=== PATIENT | female | born 1935 | race Caucasian/White ===

== ENCOUNTER 2019-06-02 20:45 | Inpatient (IN) | payer MEDICARE, SELFPAY ==
[2019-06-02 20:46] VITALS: BP 102/65; PULSE 98; RESP 20; TEMP 36.6; O2SAT 95; BMI 31.0
--- NOTE | 2019-06-02 20:55 | EKG12_ITS ---
Test Reason : SNYCOPE Blood Pressure : / mmHG Vent. Rate : 118 BPM Atrial Rate : 110 BPM P-R Int : 000 ms QRS Dur : 082 ms QT Int : 340 ms P-R-T Axes : 000 -10 135 degrees QTc Int : 476 ms Atrial fibrillation with rapid ventricular response Inferior infarct , age undetermined ST & T wave abnormality, consider lateral ischemia Abnormal ECG Confirmed by SEAN BAZAN, RONIT ([id number]), scientific publications editor CLARA JOHNSON ([id number]) on 06/05/2019 1:03:03 PM Referred By: Christophe Morrow Confirmed By:RONIT ESTRADA MD
--- NOTE | 2019-06-02 20:56 | ED.DCSUM_ITS ---
History of Present Illness Chief Complaint: Syncope Informant: Significant Other, Trimmer Sawyer Onset: Today Context: Sudden Onset Timing: Intermittent Quality: Passed out Location: Local restaurant Current Severity: Mild Maximum Severity: Severe Worsened by: Unknown Relieved by: Nothing Associated Symptoms: Hypotension, pallor, diaphoresis nausea Narrative: Patient is an elderly woman with history of hypertension and hypercholesterolemia who presents after syncopal episode. She was eating with her . She felt warm and nauseous prior to passing out. There was no noted seizure activity. There is no incontinence of urine or stool. She denies palpitations or irregular heartbeat. She denies history of atrial fibrillation. Her only present complaint is feeling tired. She denies black or maroon stool. She denies chest pain or shortness of breath. Prior similar symptoms: No Recent Illness/Hospitalization: No - Past Medical History (1) History of hypertension Status: Acute (2) History of hypercholesterolemia Status: Acute Past Medical History - Allergies and Home Meds Allergies/Adverse Reactions: Allergies polyethylene glycol [From Golytely] Allergy (Verified 06/02/19 21:22) Vomiting polyethylene glycol 3350 [From Golytely] Allergy (Verified 06/02/19 21:22) Vomiting potassium chloride [From Golytely] Allergy (Verified 06/02/19 21:22) Vomiting sodium [From Golytely] Allergy (Verified 06/02/19 21:22) Vomiting sodium bicarbonate [From Golytely] Allergy (Verified 06/02/19 21:22) Vomiting sodium chloride [From Golytely] Allergy (Verified 06/02/19 21:22) Vomiting sodium sulfate [From Golytely] Allergy (Verified 06/02/19 21:22) Vomiting Prior records reviewed: No Surgical History: noncontributory Lives: Spouse/ Significant Other Alcohol: None Drugs: None - Family History Maternal Family History: Reports: Hypertension, - - Her mother had clogged artery/narrowed artery close to her heart Paternal Family History: Reports: Cancer - Her father had lung cancer. However patient stated that her father was a smoker., - - Multiple sclerosis Review of Systems General: Denies: Chills, Fever, Sweats Eyes: Denies: Visual changes - bilaterally, Diplopia ENT: Denies: Rhinorrhea, Sore throat Cardiovascular: Denies: Chest pain, Palpitations Respiratory: Denies: Dyspnea, Cough, Dyspnea on exertion Gastrointestinal: Reports: Nausea. Denies: Abdominal pain, Vomiting, Diarrhea, Melena, Hematochezia Genitourinary: Denies: Dysuria, Hematuria, Frequency Musculoskeletal: Denies: Myalgias, Arthralgias, Neck pain, Back pain, Extremity Pain Skin: Denies: Rash, Wounds Neurological: Reports: Weakness. Denies: Headache, Numbness Hematologic: Denies: Easy bruising, Easy bleeding Allergy: Denies: Uticaria Physical Exam Vital Signs/Narrative: Vital Signs Temp Pulse Resp BP Pulse Ox 06/02/19 20:46 97.8 F 98 20 H 102/65 95 Inital Vital Signs reviewed: Yes General: Well nourished, Well developed, No Acute Distress Head: Normocephalic, Atraumatic Eyes: Perrl, EOMI. Negative for: Pale conjunctiva, Scleral icterus ENT: Moist mucous membranes, No rhinorrhea, TM's clear Neck: Supple, Nontender, No lymphadenopathy, No JVD Cardiovascular: Normal S2, Irregular, Tachycardia Respiratory: No distress, CTA bilaterally Abdomen: Soft, Nontender, Nondistended, Normal bowel sounds Back: Nontender, Normal Inspection. Negative for: CVA tenderness Extremities: Nontender, No edema Skin: Normal color, No rash, No Trauma. Negative for: Cyanosis, Diaphoresis, Jaundice Neurological: Alert, Oriented x3, Cranial nerves II-XII grossly intact, Normal Strength, Normal Sensation, Normal DTR Psychological: Normal affect, Normal Mood Diagnostic/Tx/Re-eval Laboratory Results 06/02/19 06/02/19 21:15 21:15 WBC 3.8 L RBC 3.62 L Hgb 11.9 L Hct 35.1 L MCV 97.0 MCH 32.9 H MCHC 33.9 RDW Std Deviation 45.4 H RDW Coeff of Rojelio 12.8 Plt Count 168 MPV 9.5 Sodium 136 Potassium 3.3 L Chloride 106 Carbon Dioxide 26.0 Anion Gap 4 L BUN 20 H Creatinine 0.86 Estim Creat Clear Calc 42.44 Est GFR (MDRD) Af Amer 81 Est GFR (MDRD) Non-Af 67 BUN/Creatinine Ratio 23.2 H Glucose 77 Calcium 8.6 Troponin I 0.173 H - EKG Initial EKG Interpretation: Atrial Fibrillation - Ventricular rate is 118. Decreased anterior force. QRS duration 82 ms. QT duration 340 ms. Computer is reading consider lateral ischemia. There is biphasic T wave in 1 and slightly inverted T wave and aVL. - Medical Decision Making With history of nausea, pallor, diaphoresis and hypotension syncope most likely secondary to vasovagal. She states 1 cardiology is told her that she had a problem with her heart. states that when she sought a second opinion the second associate professor of violin was puzzled why she would be told that there is a concern when her work-up was unremarkable. Patient's blood pressure presently 102. This is lower than normal. Suspect this is a prolonged vasovagal episode with hypotension. Because of her age question of heart problems EKG and appropriate blood work was obtained. Differential for new onset atrial fibrillation thyroid disease, IL, history of chronic hypertension and pulmonary embolus. Troponin was obtained to assess for myocardial ischemia. She does not have symptoms of heat or cold intolerance or hypothyroidism. Furthermore, she has no symptoms to suggest pulmonary embolus. She was given metoprolol since troponin came back indeterminant for rate control as well as 4 baby aspirin. Hospitalist was paged for further inpatient testing. - Critical Care Time Critical care time (excluding procedures): 30-74 minutes, Discussing w/Patient &/or Family/Outdoor Illuminating Engineer, Discussing w/Consultants, Arranging Admission or Transfer ED Disposition - Plan for ED Patient: Disposition: Acute Care Hospital [facility] Diagnosis: New onset atrial fibrillation, Elevated troponin I level, History of hypertension, Syncope and collapse
[2019-06-02 21:23] LABS: Hematocrit 35.1 % (37-47); Hemoglobin 11.9 g/dL (12.0-15.0); Mean Corp Hgb Conc 33.9 g/dL (32-36); Mean Corpuscular Hgb 32.9 pg (27.0-32.0); Mean Platelet Vol. 9.5 fl (6.2-12.0); Platelet Count 168 K/mm3 (150-450); RBC Distribution Width CV 12.8 % (11.6-14.6); RBC Distribution Width SD 45.4 fl (35.1-43.9); Red Blood Count 3.62 M/mm3 (4.2-5.4); White Blood Count 3.8 K/mm3 (4.4-11.0)
[2019-06-02 21:42] LABS: Anion Gap 4 (5-15); BUN 20 mg/dL (7-18); BUN/Creat Ratio 23.2 RATIO (10-20); Calcium,Total 8.6 mg/dL (8.5-10.1); Chloride 106 mmol/L (98-107); Creatinine, Serum 0.86 mg/dL (0.55-1.02); EST Glomerular Filtration Rate 67 mL/min (>60); Est Glom Filt Rate - Afr Amer 81 mL/min (>60); Estimated Creatinine Clearance 42.44 ml/min; Glucose 77 mg/dL (74-106); Potassium 3.3 mmol/L (3.5-5.1); Sodium Level 136 mmol/L (136-145)
--- NOTE | 2019-06-02 21:55 | HP.PCM_ITS ---
Problem List (1) Pre-syncope Status: Acute (2) New onset atrial fibrillation Status: Acute (3) HTN (hypertension) Status: Chronic (4) Syncope and collapse Status: Inactive History of Present Illness Date of Admission: 06/02/19 Chief Complaint: pre-syncope The patient is a 83 year old F with a significant history of trigeminal n euralgia; hypertension; hyperlipidemia and GERD who presented to the emergency department with a presyncopal episode that started a few hours before her presentation. Patient went to a restaurant to eat with her . After she had eaten food and drank a little alcohol she felt lightheaded she was lethargic and she vomited about 3 times. She felt like passing out but she did not actually pass out. Patient and re-affirmed that the alcohol patient drank was not excessive. Also she looked pale. Paramedics found that her systolic pressure was in the 60s. At the emergency department she was found to be in A. fib with rapid ventricular response of around 118. She reported that in the last 5 to 6 years occasionally she has skipped heartbeats. She denies any heart disease except that she reported in the past while being evaluated for surgery cardiology told her that she had a blockage in her heart. However a repeat examination by the network security engineer showed that her heart was okay. Past Medical History Past Medical History (Chronic Problems): Chronic Problems HTN (hypertension) (Chronic) Allergies polyethylene glycol [From Golytely] Allergy (Verified 06/02/19 21:22) Vomiting polyethylene glycol 3350 [From Golytely] Allergy (Verified 06/02/19 21:22) Vomiting potassium chloride [From Golytely] Allergy (Verified 06/02/19 21:22) Vomiting sodium [From Golytely] Allergy (Verified 06/02/19 21:22) Vomiting sodium bicarbonate [From Golytely] Allergy (Verified 06/02/19 21:22) Vomiting sodium chloride [From Golytely] Allergy (Verified 06/02/19 21:22) Vomiting sodium sulfate [From Golytely] Allergy (Verified 06/02/19 21:22) Vomiting Home Medications: Ambulatory Orders Medication Instructions Recorded Atorvastatin Calcium 10 mg PO DAILY 06/02/19 Carbamazepine 200 mg PO TID 06/02/19 Gabapentin [Neurontin] 300 mg PO TID 06/02/19 Hydrochlorothiazide 12.5 mg PO DAILY 06/02/19 Lisinopril [Zestril] 10 mg PO DAILY 06/02/19 Magnesium Oxide [Magnesium] 400 mg PO DAILY 06/02/19 Omeprazole 40 mg PO DAILY 06/02/19 Aspirin [Aspirin, Baby] 81 mg PO DAILY@0800 06/03/19 Surgical History: appendectomy, total hip arthroplasty, - - Bilateral knee surgery; tubal ligation Lives: Spouse/ Significant Other Smoking Status: Never smoker Alcohol: None Drugs: None - *Family History Maternal History Items: Hypertension, - - Her mother had clogged artery/narrowed artery close to her heart Paternal History Items: Cancer - Her father had lung cancer. However patient stated that her father was a smoker., - - Multiple sclerosis Review of Systems Constitutional: Denies: Chills, Fever, Weight Change HEENT: Denies: Head Aches, Sinus Congestion, Sinus Drainage Cardiovascular: Reports: Light Headedness. Denies: Chest Pain, Palpitations Respiratory: Denies: Cough, Shortness of breath at rest, Sputum production Gastrointestinal: Reports: Vomiting. Denies: Abdominal Pain Genitourinary: Denies: Dysuria Musculoskeletal: Denies: Joint Pain, Joint Tenderness Skin: Denies: Rash, Wounds Neurological: Denies: Numbness, Tingling, Focal weakness Psychiatric: Denies: Anxiety, Depression, Homicidal Ideations, Suicidal Ideations Hematologic/ Lymphatic: Denies: Easy Bruising, Easy Bleeding VTE Information - Inpt Only VTE Present on Admission: No VTE Mechan Device Prophylaxis: None VTE Pharm Prophylaxis ordered?: No Reason prophylaxis not ordered:: Treatment Not Indicated - Started on therapeutic dose of Lovenox for A. fib Patient Problems: Active and Suspected Problems History of hypertension (Acute) New onset atrial fibrillation (Acute) Elevated troponin I level (Acute) Pre-syncope (Acute) - Physical Exam General: Alert, Oriented x3, Cooperative HEENT: Atraumatic, PERRLA, EOMI, Normocephalic Neck: Supple, No JVD, Negative Carotid Bruits Lungs: Clear to auscultation, Normal air movement Cardiovascular: No murmurs, Irregular Rate Abdomen: Bowel Sounds Present, Soft, Non Tender Extremities: No edema, Capillary Refill Less than 3 Seconds Skin: No rashes, No breakdown Musculoskeletal: No Tenderness to Palpation of Joints or Extremities Neurological: Cranial nerves II-XII grossly intact Psych/Mental Status: Normal Affect, Appropriate Vital Signs Temp Pulse Resp BP Pulse Ox 97.8 F 98 20 H 102/65 95 06/02/19 20:46 06/02/19 20:46 06/02/19 20:46 06/02/19 20:46 06/02/19 20:46 Oxygen Delivery Method Room Air Weight: 79.4 kg Body Mass Index (BMI) 31.0 Laboratory Tests Past 24 Hrs 06/02/19 06/02/19 21:15 21:15 WBC 3.8 L RBC 3.62 L Hgb 11.9 L Hct 35.1 L MCV 97.0 MCH 32.9 H MCHC 33.9 RDW Std Deviation 45.4 H RDW Coeff of Rojelio 12.8 Plt Count 168 MPV 9.5 Sodium 136 Potassium 3.3 L Chloride 106 Carbon Dioxide 26.0 Anion Gap 4 L BUN 20 H Creatinine 0.86 Estim Creat Clear Calc 42.44 Est GFR (MDRD) Af Amer 81 Est GFR (MDRD) Non-Af 67 BUN/Creatinine Ratio 23.2 H Glucose 77 Calcium 8.6 Troponin I 0.173 H Assessment/Plan All Active Problems History of hypertension (Acute) History of hypercholesterolemia (Acute) New onset atrial fibrillation (Acute) Elevated troponin I level (Acute) Pre-syncope (Acute) The patient is a 83 year old F with a significant history of trigeminal neuralgia; hypertension; hyperlipidemia and GERD who presented to the emergency department with a presyncopal episode and found to have A. fib with RVR; and with troponin in the indeterminate range.. A. fib with RVR EKG independently reviewed showed A. fib with ventricular rates of 118 Admitted to PCU on telemetry Serial cardiac enzymes Obtain echo [id number] Score = at least 4 (age more or equal 77; female gender; hypertension) Lovenox 1 mg per kilogram subcutaneous every 12 hours Patient was given metoprolol 25 mg p.o. x1 at the emergency department. We will continue patient on metoprolol 12.5 mg p.o. twice daily. Of note patient is on lisinopril and hydrochlorothiazide. She reported that in the past she has had low blood pressures. Will decrease lisinopril from 10mg to 5 mg daily. Consider further adjustment to her blood pressure regimen. Her potassium was low at 3.3; replaced Check magnesium and TSH Consult [facility] Recheck the labs in the a.m. including a lipid panel. Elevated troponin Etiology includes CAD; A. fib or other. Trend troponin Received aspirin 325 mg at the emergency department. Continue aspirin 81 mg daily. Continue home Lipitor. Cardiology consult as above Presyncopal episode This could be related to her A. fib; vasovagal episode; CAD or other. Check orthostatic vitals. Echocardiogram as above A. fib management as above. Hypertension In regards to her age her blood pressure on presentation was stable. Continue hydrochlorothiazide. Lisinopril changed from 10 mg to 5 mg because of starting metoprolol. Trend blood pressure and adjust blood pressure medication. Of note patient reports previous episodes of hypotension that has now resolved. And as stated above patient was noted to have systolic blood pressure in the 60s when she had a presyncopal episode that brought her to the emergency department.. Trigeminal neuralgia Carbamazepine and Neurontin continued DVT prophylaxis Not indicated since patient has been started on therapeutic dose of Lovenox for A. fib. Code Visit Inpatient E&M: 25438 Init Hosp L3
[2019-06-02] MEDS: Aspirin 81 MG TAB.CHEW 324 MG PO (22:22)
[2019-06-02 22:23] VITALS: BP 117/89; PULSE 122; RESP 23; O2SAT 95
[2019-06-02] MEDS: Metoprolol Tartrate 25 MG Tablet PO (22:23)
--- NOTE | 2019-06-02 23:09 | ECHOD_ITS ---
Reason For Study: A. fib Procedure This was a 2D Doppler, Color Flow transthoracic echocardiogram. Exam performed portable in patient room. Left Ventricle Mild concentric left ventricular hypertrophy. The estimated ejection fraction is 65 %. Right Ventricle Normal right ventricle. Atria The left atrium is moderately enlarged. Mitral Valve Mild (1+) mitral valve insufficiency. Tricuspid Valve Mild tricuspid valve insufficiency. Pulmonary artery systolic pressure is 35 mmHg. Aortic Valve Normal aortic valve. Pulmonic Valve Mild (1+) pulmonic valve insufficiency. Great Vessels Suspicious linear structure in IVC. Can not rule out thrombus. Cosider CT angio to evaluate further. Pericardium/Pleural No pericardial effusion. MMode/2D Measurements & Calculations LVIDd: 2.0 cm IVSd: 1.3 cm Ao root diam: 3.2 cm LVIDs: 1.3 cm LVPWd: 1.1 cm RVDd: 3.0 cm FS: 34.9 % LAV(MOD-bp): 73.8 ml LA A4 area: 20.8 cm2 LA dimension(2D): 3.2 cm LAV(MOD-bp) Indexed: 40.4 ml/m2 LAV(MOD-sp2): 86.8 ml LAV(MOD-sp4): 58.8 ml RA A4 area: 17.5 cm2 Doppler Measurements & Calculations MV E max mirlande: 115.8 cm/sec Ao V2 max: 144.2 cm/sec LV V1 max: 126.8 cm/sec Ao max P.4 mmHg LV V1 max P.5 mmHg PA V2 max: 80.9 cm/sec TR max mirlande: 262.3 cm/sec TR max P.6 mmHg Interpretation Summary Mild concentric left ventricular hypertrophy. The estimated ejection fraction is 65 %. Suspicious linear structure in IVC. Can not rule out thrombus. Cosider CT angio to evaluate further Ordering Physician: Christophe Morrow Referring Physician: Kevin Flores Performed By: Sandra Granados RDCS
[2019-06-02 23:10] VITALS: BMI 30.2
[2019-06-02 23:11] VITALS: BP 131/80; PULSE 111; RESP 18; TEMP 36.4; O2SAT 96
[2019-06-02 23:12] VITALS: BP 139/80
[2019-06-02 23:16] VITALS: PULSE 106
[2019-06-03] VITALS (15 sets, daily range): BP systolic 101–139; BP diastolic 59–100; PULSE 67–146; RESP 13–16; TEMP 36.5–36.9; O2SAT 96–98; BMI 30.2
[2019-06-03] MEDS: Enoxaparin 80 MG/0.8 ML Syringe SC ×3 (00:51→22:30)
[2019-06-03 00:57] LABS: Magnesium 2.1 mg/dL (1.6-2.6)
[2019-06-03 01:06] LABS: Bedside Glucose 108 mg/dL (70-110)
[2019-06-03] MEDS: Gabapentin 300 MG Capsule PO ×4 (01:31→19:40)
[2019-06-03 04:25] LABS: Anion Gap 4 (5-15); BUN 17 mg/dL (7-18); BUN/Creat Ratio 22.1 RATIO (10-20); Calcium,Total 8.4 mg/dL (8.5-10.1); Chloride 109 mmol/L (98-107); Cholesterol 187 mg/dL (200); Creatinine, Serum 0.77 mg/dL (0.55-1.02); EST Glomerular Filtration Rate 77 mL/min (>60); Est Glom Filt Rate - Afr Amer 93 mL/min (>60); Glucose 95 mg/dL (74-106); High Density Lipoprotein 82 mg/dL; Potassium 4.5 mmol/L (3.5-5.1); Sodium Level 141 mmol/L (136-145); Thyroid Stim Hormone (TSH) 1.17 uIU/mL (0.358-3.74); Triglycerides 67 mg/dL; Very Low Density Lipoprotein 13 mg/dL (5-40)
[2019-06-03] MEDS: CLARIFY ORDER 1 EACH NOTE (06:54)
[2019-06-03] MEDS: 0.9% NaCl Peripheral Flush Adult/Peds IV (07:12)
[2019-06-03] MEDS: Aspirin 81 MG TAB.CHEW PO (08:27)
[2019-06-03] MEDS: hydroCHLOROthiazide 12.5mg 12.5 MG PO (10:15)
[2019-06-03] MEDS: Lisinopril 5 MG Tablet PO (10:15)
[2019-06-03] MEDS: Metoprolol Tartrate 25 MG Tablet 12.5 MG PO (10:15)
[2019-06-03] MEDS: Magnesium Oxide 400 MG Tablet PO (10:16)
[2019-06-03] MEDS: Pantoprazole Sodium 40 MG Tablet PO (10:16)
[2019-06-03] MEDS: carBAMazepine 200 MG Tablet PO ×3 (10:16→22:29)
--- NOTE | 2019-06-03 11:39 | CASEMGMT ---
MAREN NEWSOME assessment: Face to Face with patient for initial transition planning/care coordination assessment. MAREN NEWSOME introduced self and role at [facility], pt voices understanding and consents to assessment at this time. Pt is sitting up in bed in no distress at this time. Pt is A/Ox4 at this time and answers all questions appropriately at this time. Care providers, pharmacy, and demographics verified at this time. PCP: [facility] Specialists: Pt states has neurologist in [place]. Preferred Pharmacy: [facility] Insurance: [facility] Prescription Benefit: Access ClosureR Living Will/HPOA: Pt states does not have LW/HPOA and declines info at this time. LNOK: Yuan Kelly, Living Arrangements: Pt states lives with in 1 story home with 4 steps in and states no concerns at home at this time. Pt states is independent with ADL's. Transportation: Pt states drives self and states no transportation concerns at this time. DME/HHC: Pt states has a cane and walker at home and states no need for any further DME at this time. Pt states has had HHC in the past and states has been to [facility] in [place] in the past. Pt states no concerns with going home at time of discharge. Pt states is retired. Pt states does not smoke or drink ETOH. Pt states no further concerns/needs at this time. CM to follow for any further discharge planning/needs. Advised pt to ask for CM if any further questions/concerns/needs arise, voices understanding. Pt Goal: Home Plan[place] MAREN NEWSOME
--- NOTE | 2019-06-03 12:41 | CT_ITS ---
HISTORY: Abdominal pain with concern for IVC thrombosis COMPARISON: None. TECHNIQUE: Helical CT axial images from the lung bases to the pubic symphysis with 100 ml of Isovue 370 intravenous contrast. Multiplanar reconstruction. 3D image processing was also performed. A radiation dose optimization technique was used for this scan. # of images incl. paperwork: [id number] FINDINGS: VASCULAR: Note that the delayed phase imaging did not adequately opacify the IVC. No abnormal dilatation of the IVC or bilateral common iliac veins. Renal veins, splenic vein, portal vein and SMV are patent. Normal caliber abdominal aorta without aneurysm or dissection. Mild infrarenal abdominal aortic tortuosity and minimal ASVD. Main visceral branches including the celiac, superior mesenteric, and inferior mesenteric arteries and bilateral renal arteries are patent. LUNG BASES: No basilar consolidation or effusions. LIVER: Normal in size and attenuation. A left hepatic lobe 5 mm probable cyst. Benign-appearing hypodense lesion posterior segment right hepatic lobe near the inferior margin measuring 1.8 x 0.7 cm. No suspicious hepatic lesions. HEPATOBILIARY: Normal-appearing gallbladder. No intra- or extrahepatic ductal dilatation. SPLEEN: Normal size. PANCREAS: Normal size and contour. No focal mass. ADRENAL GLANDS: Normal size. No adrenal masses. KIDNEYS: No obstructing calculi or hydronephrosis bilaterally. No nephrolithiasis. Moderate size multiple left parapelvic renal cysts. Several small bilateral parenchymal renal cysts. BOWEL AND MESENTERY: No small or large bowel dilatation. No visualized colonic diverticulosis. No abnormal mesenteric lymphadenopathy. No free fluid or pneumoperitoneum. RETROPERITONEUM: No abnormal retroperitoneal lymphadenopathy. ABDOMINAL WALL: The abdominal wall is intact. BONES: No suspicious osseous lytic or blastic lesions seen. Moderate levoconvex scoliosis of lumbar spine. Severe thoracolumbar spine degenerative changes. CT/CTA Abdomen W/WO Contrast IMPRESSION: 1. Late-phase imaging was not obtained and hence opacification of the IVC was not adequately achieved. There is no abnormal dilatation of the IVC nor bilateral common iliac veins. Visceral veins are patent as described. 2. Negative CTA of the abdomen. 3. No acute intra-abdominal disease. 4. Moderate left parapelvic renal cysts. No obstructive uropathy. 5. A couple of benign-appearing hepatic lesions as described. Individualized dose optimization techniques were used for this CT. at 1416 Reported and signed by: Gamaliel Noriega MD Electronically Signed: Gamaliel Noriega MD at 14:15 EDT Tel , Service support ,
[2019-06-03 12:48] LABS: D-Dimer Quantitative (DVT/PE) 1.02 FEU/ug/m (0.27-0.49)
--- NOTE | 2019-06-03 13:29 | CON.PCM_ITS ---
Problem List (1) New onset atrial fibrillation Status: Acute Reason for Consult Date of Consultation: 06/03/19 History of Present Illness: The patient is a 83 year old F past medical history significant for trigeminal neuralgia, hypertension and dyslipidemia. She was at a restaurant yesterday with it and she felt lightheaded and thought she was going to pass out. That feeling lasted for a few minutes. She was brought to the emergency room. In the emergency room, she was noted to have atrial fibrillation with rapid ventricular response. Patient has been asymptomatic since during further stay in the hospital. Patient denies any previous history of syncope or presyncope. Denies any history of CVA or TIA. Denies any history of chest pain or shortness of breath either related rest or with exertion. According to her, she has had some palp itations many years ago. No orthopnea proximal nocturnal dyspnea. [] Past Medical History Allergies/Adverse Reactions: Allergies polyethylene glycol [From [facility]] Allergy (Verified 06/02/19 21:22) Vomiting polyethylene glycol 3350 [From [facility]] Allergy (Verified 06/02/19 21:22) Vomiting potassium chloride [From [facility]] Allergy (Verified 06/02/19 21:22) Vomiting sodium [From [facility]] Allergy (Verified 06/02/19 21:22) Vomiting sodium bicarbonate [From [facility]] Allergy (Verified 06/02/19 21:22) Vomiting sodium chloride [From [facility]] Allergy (Verified 06/02/19 21:22) Vomiting sodium sulfate [From [facility]] Allergy (Verified 06/02/19 21:22) Vomiting Home Medications: Ambulatory Orders Medication Instructions Recorded Atorvastatin Calcium 10 mg PO DAILY 06/02/19 Carbamazepine 200 mg PO TID 06/02/19 Gabapentin [Neurontin] 300 mg PO TID 06/02/19 Hydrochlorothiazide 12.5 mg PO DAILY 06/02/19 Lisinopril [Zestril] 10 mg PO DAILY 06/02/19 Magnesium Oxide [Magnesium] 400 mg PO DAILY 06/02/19 Omeprazole 40 mg PO DAILY 06/02/19 Aspirin [Aspirin, Baby] 81 mg PO DAILY@0800 06/03/19 Past Medical History (Chronic Problems): Chronic Problems HTN (hypertension) (Chronic) Surgical History: appendectomy, total hip arthroplasty, - - Bilateral knee surgery; tubal ligation - *Family History Maternal History Items: Hypertension, - - Her mother had clogged artery/narrowed artery close to her heart Paternal History Items: Cancer - Her father had lung cancer. However patient stated that her father was a smoker., - - Multiple sclerosis Lives: Spouse/ Significant Other Smoking Status: Never smoker Tobacco Use: Non-smoker Alcohol: None Drugs: None Review of Systems - Review of Systems General: Denies: Fever, Chills HEENT: Reports: Blurred Vision. Denies: Head Aches Cardiovascular: Reports: Near Syncope. Denies: Chest Discomfort, Chest Discomfort at Rest, Chest Discomfort with Exertion, Shortness of Breath, Shortness of Breath at Rest, Shortness of Breath with Exertion, Orthopnea, PND, Peripheral Edema, Palpitations, Syncope Respiratory: Denies: Hemoptysis Gastrointestinal: Denies: Abdominal Discomfort, Jaundice Neurological: Denies: History of TIA, History of CVA Hematologic/ Lymphatic: Denies: Anemia, Easy Brusing, Easy Bleeding Subjectve: Pleasant lady. No apparent distress. Objective: Vital Signs Temp Pulse Resp BP Pulse Ox 98.0 F 79 16 113/71 96 06/03/19 10:07 06/03/19 10:59 06/03/19 10:07 06/03/19 10:15 06/03/19 10:07 Oxygen Delivery Method Room Air Weight: 77.4 kg Body Mass Index (BMI) 30.2 Orthostatic Vital Signs Start: 06/03/19 03:20 Freq: q24h Status: Active Protocol: Activity Type Activity Date Activity User E-Sign Co-Sign Detail Recorded Client Recorded Date Recorded By Document 06/03/19 07:03 PAL [id number] 06/03/19 07:09 PAL 06/03/19 07:03 Orthostatic Vitals Standing -Blood Pressure (90/60-120/80) 118/77 -Extremity Use Left Arm -Pulse Rate (60-100) 115 H Sitting -Blood Pressure (90/60-120/80) 105/68 -Extremity Use Left Arm -Pulse Rate (60-100) 115 H Lying -Blood Pressure (90/60-120/80) 117/66 -Extremity Use Left Arm -Pulse Rate (60-100) 94 Intake and Output for Last 24 Hours 06/01/19 06/02/19 06/03/19 23:59 23:59 23:59 Intake Total 370 / 370 Output Total 300 / 300 Balance 70 / 70 General: Healthy Appearing, Awake, Alert, Oriented x 3, Cooperative, - - Lying flat in the bed HEENT: Atraumatic, Normocephalic Neck: Supple, No JVD Lungs: Clear to auscultation Cardiovascular: Irregular Rhythm, Normal S1, Normal S2, No Murmurs, No Rubs Vascular: No Carotid Bruits Abdomen: Bowel Sounds Present, Soft Extremities: No edema Neurological: No Focal Motor or Sensory Deficit Psych/Mental Status: Appropriate 06/02/19 21:15: WBC 3.8 L, RBC 3.62 L, Hgb 11.9 L, Hct 35.1 L, MCV 97.0, MCH 32.9 H, MCHC 33.9, Plt Count 168, MPV 9.5 06/02/19 21:15: Sodium 136, Potassium 3.3 L, Chloride 106, Carbon Dioxide 26.0, Anion Gap 4 L, BUN 20 H, Creatinine 0.86, Est GFR (MDRD) Af Amer 81, Est GFR (MDRD) Non-Af 67, BUN/Creatinine Ratio 23.2 H, Glucose 77, Calcium 8.6, Troponin I 0.173 H 06/03/19 00:02: Troponin I 0.206 H 06/03/19 00:02: Magnesium 2.1 06/03/19 03:36: Sodium 141, Potassium 4.5, Chloride 109 H, Carbon Dioxide 28.0, Anion Gap 4 L, BUN 17, Creatinine 0.77, Est GFR (MDRD) Af Amer 93, Est GFR (MDRD) Non-Af 77, BUN/Creatinine Ratio 22.1 H, Glucose 95, Calcium 8.4 L, Triglycerides 67, Cholesterol 187, LDL Cholesterol 92, VLDL Cholesterol 13, HDL Cholesterol 82 06/03/19 03:36: Troponin I 0.195 H 06/03/19 12:10: D-Dimer Quant (PE/DVT) 1.02 H* Rhythm: Atrial fibrillation EKG: Atrial fibrillation. Nonspecific ST changes ECHO: Report noted Stress Test: Cardiac Cath: PCI: CT Surgery: Holter monitor: EPS: PPM: CXR: Chest CT Scan: Assessment/Plan 1. New onset atrial fibrillation. Agree with starting on metoprolol. Increase dose to 25 mg twice daily. [id number] score is 4. Recommend chronic oral anticoagulation to reduce thromboembolic risk. Discussed with patient in detail. Risks benefits discussed. She understands and wishes to proceed. Presently she is on Lovenox. May discontinue in the morning and start on Eliquis. 2. Indeterminant troponin. Check Lexiscan stress Cardiolite to rule out ischemia. 3. Presyncope. Likely with atrial fibrillation with rapid ventricular response. Also check carotid Dopplers. 4. History of hypertension. 5. History of dyslipidemia. 6. 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 For CT angio
--- NOTE | 2019-06-03 13:37 | CDU_ITS ---
Reason For Study: Vertigo Rt. Velocities/BP Lt. Velocities/BP Prox CCA 64.3/12.1 cm/sec. Prox CCA 87.2/24.5 cm/sec. Mid CCA 65.6/21.3 cm/sec. Mid CCA 98.1/36.6 cm/sec. Dist CCA 52.6/14.7 cm/sec. Dist CCA 60.8/21.2 cm/sec. Prox ICA 43.7/12.6 cm/sec. Prox ICA 49.4/12.6 cm/sec. Mid ICA 74/25.8 cm/sec. Mid ICA 69.2/23.9 cm/sec. Dist ICA 65.5/20.1 cm/sec. Dist ICA 103.5/36 cm/sec. Rt. ICA/CCA = 1.2. Lt. ICA/CCA = 1.2. Prox ECA 63/9.5 cm/sec. Prox ECA 56.4/2.5 cm/sec. Rt. Vert. 45.6/15.4 cm/sec. Lt. Vert. 44.8/9.9 cm/sec. Right Extracranial There is homogeneous, smooth atherosclerotic plaque noted in the right common carotid artery. There is homogeneous, smooth atherosclerotic plaque noted in the right internal carotid artery. There is intimal thickening but no significant atherosclerotic plaque noted in the right external carotid artery. Antegrade flow is noted in the right vertebral artery. Left Extracranial There is homogeneous, smooth atherosclerotic plaque noted in the left common carotid artery. There is heterogeneous, irregular atherosclerotic plaque noted in the left internal carotid artery. There is intimal thickening but no significant atherosclerotic plaque noted in the left external carotid artery. Antegrade flow is noted in the left vertebral artery. Procedure Carotid Duplex 07998. Exam performed portable in patient room. Interpretation Summary No hemodynamically significant plague or stenosis bilateral extracranial internal carotids with <50% stenosis bilaterally <50% stenosis bilateral external carotids Patent and antegrade vertebrals bilaterally Ordering Physician: Ted Nugent Referring Physician: Kevin Ulrich Performed By: Radha Santos RVT
--- NOTE | 2019-06-03 18:42 | PN_ITS ---
Patient Problems: Active and Suspected Problems History of hypertension (Acute) New onset atrial fibrillation (Acute) Elevated troponin I level (Acute) Pre-syncope (Acute) Subjective: Patient was seen and examined today, she remains in atrial fibrillation with her rate in the lower 100s at times. Patient's blood pressure is stable at this time, I have decided to increase patient's metoprolol this afternoon. Patient was seen by cardiology today, patient has agreed to take full anticoagulation such as Eliquis for stroke prevention from her atrial fib. I asked the patient's to check and see if Xarelto or Eliquis was preferred on their prescription plan. Finally, patient had a CT of the abdomen today because her echocardiogram indicated she might have an IVC thrombus-the study was a poor study and could not be determined whether she had a thrombus in her IVC but patient is going to be fully anticoagulated anyway and I do not see this is an issue. I would rather not subject the patient to another CTA of the abdomen with additional dye. I explained this to the patient. Patient's echocardiogram today showed a normal EF. Cardiology is recommending a possible stress test- this would have to be done on Wednesday at the earliest. - Physical Exam General: Alert, Oriented x3, Cooperative, No apparent distress, Well developed, Well nourished HEENT: Atraumatic, PERRLA, EOMI, Normocephalic Oral: Moist Mucosa Neck: Supple, Trachea Midline, Thyroid Normal Size and Texture Lungs: Clear to auscultation, Normal air movement, No rhonchi, No wheeze, No rales Cardiovascular: No murmurs, PMI Normal, Irregular Rate, No rub noted, No Gallop Abdomen: Bowel Sounds Present, Soft, Non Tender, Non-Distended Extremities: No edema, Capillary Refill Less than 3 Seconds Skin: No rashes, No breakdown Musculoskeletal: No Tenderness to Palpation of Joints or Extremities Neurological: Cranial nerves II-XII grossly intact, Neuro grossly intact, Sensory exam intact to light touch and pain Psych/Mental Status: Normal Affect, Appropriate, Alert and oriented to time, place, person, mood and affect Vital Signs Temp Pulse Resp BP Pulse Ox 97.7 F L 85 16 139/81 H 97 06/03/19 16:07 06/03/19 16:06/03/19 16:06/03/19 16:06/03/19 16:07 Oxygen Delivery Method Room Air Weight: 77.4 kg Body Mass Index (BMI) 30.2 Orthostatic Vital Signs Start: 06/03/19 03:20 Freq: q24h Status: Active Protocol: Activity Type Activity Date Activity User E-Sign Co-Sign Detail Recorded Client Recorded Date Recorded By Document 06/03/19 07:03 PAL [id number] 06/03/19 07:09 PAL 06/03/19 07:03 Orthostatic Vitals Standing -Blood Pressure (90/60-120/80) 118/77 -Extremity Use Left Arm -Pulse Rate (60-100) 115 H Sitting -Blood Pressure (90/60-120/80) 105/68 -Extremity Use Left Arm -Pulse Rate (60-100) 115 H Lying -Blood Pressure (90/60-120/80) 117/66 -Extremity Use Left Arm -Pulse Rate (60-100) 94 Intake and Output for Last 24 Hours 06/01/19 06/02/19 06/03/19 23:59 23:59 23:59 Intake Total 610 / 610 Output Total 300 / 300 Balance 310 / 310 Laboratory Tests Past 24 Hrs 06/02/19 06/02/19 06/03/19 21:15 21:15 00:02 WBC 3.8 L RBC 3.62 L Hgb 11.9 L Hct 35.1 L MCV 97.0 MCH 32.9 H MCHC 33.9 RDW Std Deviation 45.4 H RDW Coeff of Rojelio 12.8 Plt Count 168 MPV 9.5 D-Dimer Quant (PE/DVT) Sodium 136 Potassium 3.3 L Chloride 106 Carbon Dioxide 26.0 Anion Gap 4 L BUN 20 H Creatinine 0.86 Estim Creat Clear Calc 42.44 Est GFR (MDRD) Af Amer 81 Est GFR (MDRD) Non-Af 67 BUN/Creatinine Ratio 23.2 H Glucose 77 Calcium 8.6 Magnesium Troponin I 0.173 H 0.206 H Triglycerides Cholesterol LDL Cholesterol VLDL Cholesterol HDL Cholesterol TSH 06/03/19 06/03/19 06/03/19 00:02 03:36 03:36 WBC RBC Hgb Hct MCV MCH MCHC RDW Std Deviation RDW Coeff of Rojelio Plt Count MPV D-Dimer Quant (PE/DVT) Sodium 141 Potassium 4.5 Chloride 109 H Carbon Dioxide 28.0 Anion Gap 4 L BUN 17 Creatinine 0.77 Estim Creat Clear Calc 34.90 Est GFR (MDRD) Af Amer 93 Est GFR (MDRD) Non-Af 77 BUN/Creatinine Ratio 22.1 H Glucose 95 Calcium 8.4 L Magnesium 2.1 Troponin I 0.195 H Triglycerides 67 Cholesterol 187 LDL Cholesterol 92 VLDL Cholesterol 13 HDL Cholesterol 82 TSH 1.17 06/03/19 12:10 WBC RBC Hgb Hct MCV MCH MCHC RDW Std Deviation RDW Coeff of Rojelio Plt Count MPV D-Dimer Quant (PE/DVT) 1.02 H* Sodium Potassium Chloride Carbon Dioxide Anion Gap BUN Creatinine Estim Creat Clear Calc Est GFR (MDRD) Af Amer Est GFR (MDRD) Non-Af BUN/Creatinine Ratio Glucose Calcium Magnesium Troponin I Triglycerides Cholesterol LDL Cholesterol VLDL Cholesterol HDL Cholesterol TSH POC Glucose 06/03/19 00:55 POC Glucose 108 Medical Necessity - Tobacco Use Smoking Status: Never smoker Tobacco Use: Non-smoker Assessment/Plan All Active Problems History of hypertension (Acute) History of hypercholesterolemia (Acute) New onset atrial fibrillation (Acute) Elevated troponin I level (Acute) Pre-syncope (Acute) #1 new onset atrial fibrillation-again I increase patient's metoprolol to 50 mg twice a day, she will remain on Lovenox until tomorrow, she will be placed either on Eliquis or Xarelto tomorrow. 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
[2019-06-03] MEDS: Atorvastatin Calcium 10 MG Tablet PO (22:29)
[2019-06-03] MEDS: Metoprolol Tartrate 50 MG Tablet PO (22:31)
[2019-06-04] VITALS (17 sets, daily range): BP systolic 106–124; BP diastolic 60–88; PULSE 68–150; RESP 11–18; TEMP 36.4–37.1; O2SAT 95–98
[2019-06-04] MEDS: Metoprolol Tartrate 50 MG Tablet PO ×2 (08:18→21:46)
[2019-06-04] MEDS: Magnesium Oxide 400 MG Tablet PO (08:18)
[2019-06-04] MEDS: Gabapentin 300 MG Capsule PO ×3 (08:18→19:44)
[2019-06-04] MEDS: hydroCHLOROthiazide 12.5mg 12.5 MG PO (08:18)
[2019-06-04] MEDS: Aspirin 81 MG TAB.CHEW PO (08:18)
[2019-06-04] MEDS: Pantoprazole Sodium 40 MG Tablet PO (08:19)
[2019-06-04] MEDS: Lisinopril 5 MG Tablet PO (08:19)
[2019-06-04] MEDS: Enoxaparin 80 MG/0.8 ML Syringe SC ×2 (08:19→21:46)
--- NOTE | 2019-06-04 10:58 | PCM.PN.CARD ---
Subjectve: No complaints. No chest pain. No shortness of breath. No lightheadedness or dizziness. Objective: Vital Signs Temp Pulse Resp BP Pulse Ox 97.5 F L 82 16 116/66 97 06/04/19 08:05 06/04/19 08:18 06/04/19 08:05 06/04/19 08:05 06/04/19 08:05 Oxygen Delivery Method Room Air Weight: 77.4 kg Body Mass Index (BMI) 30.2 Orthostatic Vital Signs Start: 06/03/19 03:20 Freq: q24h Status: Active Protocol: Activity Type Activity Date Activity User E-Sign Co-Sign Detail Recorded Client Recorded Date Recorded By Document 06/04/19 05:17 EEA [id number] 06/04/19 05:30 EEA 06/04/19 05:17 Orthostatic Vitals Standing -Blood Pressure (90/60-120/80) 116/74 -Extremity Use Right Arm -Pulse Rate (60-100) 83 Sitting -Blood Pressure (90/60-120/80) 106/71 -Extremity Use Right Arm -Pulse Rate (60-100) 75 Lying -Blood Pressure (90/60-120/80) 112/61 -Extremity Use Right Arm -Pulse Rate (60-100) 78 Intake and Output for Last 24 Hours 06/02/19 06/03/19 06/04/19 23:59 23:59 23:59 Intake Total 885 / 885 Output Total 1200 / 1200 350 / 350 Balance -315 / -315 -330 / -330 General: Healthy Appearing, Awake, Alert, Oriented x 3, No Acute Distress Neck: Supple Lungs: Clear to auscultation Cardiovascular: Irregular Rhythm, Normal S1, Normal S2 Extremities: No edema Neurological: No Focal Motor or Sensory Deficit 06/03/19 12:10: D-Dimer Quant (PE/DVT) 1.02 H* Rhythm: Atrial fibrillation with controlled ventricular response EKG: ECHO: Stress Test: Cardiac Cath: PCI: CT Surgery: Holter monitor: EPS: PPM: CXR: Chest CT Scan: Medical Necessity - Tobacco Use Smoking Status: Never smoker Tobacco Use: Non-smoker Assessment/Plan 1. New onset atrial fibrillation. Metoprolol increased. Heart rate controlled. Start on p.o. anticoagulants in the morning 2. Indeterminant troponin. Check Lexiscan stress Cardiolite to rule out ischemia. 3. Presyncope. Likely with atrial fibrillation with rapid ventricular response. Also check carotid Dopplers. 4. History of hypertension. 5. History of dyslipidemia. 6. 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 CT angios indeterminant. Check ultrasound of the inferior vena cava. Also consider Doppler ultrasound of lower extremity veins.
[2019-06-04] MEDS: carBAMazepine 200 MG Tablet PO ×3 (11:41→22:00)
[2019-06-04] MEDS: Ondansetron 4 MG/2 ML Vial IV (13:02)
--- NOTE | 2019-06-04 15:38 | AAVD_ITS ---
Reason For Study: Possile IVC thrombus Aorta Measurements Aorta Doppler Measurements Proximal aorta measures1.67 x 1.67cm. in cross- Peak systolic flow velocities within the proximal sectional axis. aorta measure 55.6 cm/sec. Proximal aorta measures1.66cm. in longitudinal Peak systolic flow velocities within the mid aorta axis. measure 56.3 cm/sec. Mid aorta measures1.30 x 1.26cm. in cross- Peak systolic flow velocities within the distal sectional axis. aorta measure 59.2 cm/sec. Mid aorta measures1.31cm. in longitudinal axis. Distal aorta measures1.25 x 1.22cm. in cross- sectional axis. Distal aorta measures1.22cm. in longitudinal axis. IVC appears patent with color and doppler signals. Left Iliac Artery Left iliac artery measures 0.86 x 0.86 cm. in the cross-sectional axis. Left iliac artery measures 0.83 cm. in the longitudinal axis. Peak systolic velocity in the left iliac artery measures 70.2 cm/sec. Right Iliac Artery Right iliac artery measures 0.87 x 0.86 cm. in the cross-sectional axis. Right iliac artery measures 0.85 cm. in the longitudinal axis. Peak systolic velocity in the right iliac artery measures 63.9 cm/sec. Procedure Aorta IVC Iliac vasculature or bypass grafts [id number]. Exam performed portable in patient room. Interpretation Summary Normal aortic diameter 1.67 x 1.67cm proximally with normal flow Where visualized the inferior vena cava appears patent Left common iliac 0.86 x 0.86cm with normal flow Right common iliac 0.87 x 0.86cm with normal flow Ordering Physician: Ted Nugent Referring Physician: Kevin Ulrich Performed By: Radha Santos RVT
[2019-06-04] MEDS: 0.9% NaCl Peripheral Flush Adult/Peds IV (16:43)
--- NOTE | 2019-06-04 17:49 | PCM.PROGNOTE ---
Patient Problems: Active and Suspected Problems History of hypertension (Acute) New onset atrial fibrillation (Acute) Elevated troponin I level (Acute) Pre-syncope (Acute) Subjective: Patient was seen and examined today, I increased her metoprolol yesterday due to increased heart rate, her heart rate today appears better controlled. She does not complain of any chest pain or shortness of breath. Discussed her care with cardiology. Cardiology requests that the patient undergo further testing to exclude a thrombus in her IVC, I have ordered a duplex scan of her IVC tomorrow. - Physical Exam General: Alert, Oriented x3, Cooperative, No apparent distress, Well developed HEENT: Atraumatic, PERRLA, EOMI, Normocephalic Oral: Moist Mucosa Neck: Supple, Trachea Midline, Thyroid Normal Size and Texture Lungs: Clear to auscultation, Normal air movement, No rhonchi, No wheeze, No rales Cardiovascular: No murmurs, PMI Normal, Irregular Rate, No rub noted Abdomen: Bowel Sounds Present, Soft, Non Tender, Non-Distended, No hernias noted Extremities: No clubbing, No cyanosis, No edema, Capillary Refill Less than 3 Seconds Skin: No rashes, No breakdown Musculoskeletal: No Tenderness to Palpation of Joints or Extremities Neurological: Cranial nerves II-XII grossly intact, Neuro grossly intact, Sensory exam intact to light touch and pain, Coordination normal Psych/Mental Status: Normal Affect, Appropriate, Alert and oriented to time, place, person, mood and affect Vital Signs Temp Pulse Resp BP Pulse Ox 97.7 F L 100 16 124/68 H 98 06/04/19 14:55 06/04/19 15:26 06/04/19 14:55 06/04/19 14:55 06/04/19 14:55 Oxygen Delivery Method Room Air Weight: 77.4 kg Body Mass Index (BMI) 30.2 Orthostatic Vital Signs Start: 06/03/19 03:20 Freq: q24h Status: Active Protocol: Activity Type Activity Date Activity User E-Sign Co-Sign Detail Recorded Client Recorded Date Recorded By Document 06/04/19 05:17 A [id number] 06/04/19 05:30 EEA 06/04/19 05:17 Orthostatic Vitals Standing -Blood Pressure (90/60-120/80) 116/74 -Extremity Use Right Arm -Pulse Rate (60-100) 83 Sitting -Blood Pressure (90/60-120/80) 106/71 -Extremity Use Right Arm -Pulse Rate (60-100) 75 Lying -Blood Pressure (90/60-120/80) 112/61 -Extremity Use Right Arm -Pulse Rate (60-100) 78 Intake and Output for Last 24 Hours 06/02/19 06/03/19 06/04/19 23:59 23:59 23:59 Intake Total 885 / 885 360 / 360 Output Total 1200 / 1200 350 / 350 Balance -315 / -315 Medical Necessity - Tobacco Use Smoking Status: Never smoker Tobacco Use: Non-smoker Assessment/Plan All Active Problems History of hypertension (Acute) History of hypercholesterolemia (Acute) New onset atrial fibrillation (Acute) Elevated troponin I level (Acute) Pre-syncope (Acute) #1 new onset atrial fibrillation-continue her metoprolol, patient will remain on Lovenox until her stress test is completed, she can then be transition to Eliquis-there is an interaction between Xarelto and Tegretol and it would be better if the patient took Eliquis. 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
[2019-06-04] MEDS: Atorvastatin Calcium 10 MG Tablet PO (21:46)
[2019-06-05] VITALS (10 sets, daily range): BP systolic 106–138; BP diastolic 62–95; PULSE 71–96; RESP 12–16; TEMP 36.3–36.4; O2SAT 93–97
--- NOTE | 2019-06-05 | EKG12_ITS ---
Test Reason : AM EKG Blood Pressure : / mmHG Vent. Rate : 078 BPM Atrial Rate : 110 BPM P-R Int : 000 ms QRS Dur : 080 ms QT Int : 376 ms P-R-T Axes : 000 -12 117 degrees QTc Int : 428 ms Atrial fibrillation with a competing junctional pacemaker Inferior infarct , age undetermined Abnormal ECG When compared with ECG of 05-JUN-2019 00:10, MANUAL COMPARISON REQUIRED, DATA IS UNCONFIRMED Confirmed by SEAN BAZAN, RONIT ([id number]), editor in chief newspaper CLARA JOHNSON ([id number]) on 06/06/2019 2:08:06 PM Referred By: Christophe Morrow Confirmed By:RONIT ESTRADA MD
--- NOTE | 2019-06-05 00:01 | NURSING ---
STAT EKG ordered for chest pain at this time. [facility] notified.
--- NOTE | 2019-06-05 05:55 | EKG12_ITS ---
Test Reason : CP Blood Pressure : / mmHG Vent. Rate : 073 BPM Atrial Rate : 326 BPM P-R Int : 000 ms QRS Dur : 080 ms QT Int : 392 ms P-R-T Axes : 000 -10 105 degrees QTc Int : 431 ms Atrial fibrillation Inferior infarct , age undetermined Abnormal ECG When compared with ECG of 02-JUN-2019 20:52, MANUAL COMPARISON REQUIRED, DATA IS UNCONFIRMED Confirmed by SEAN BAZAN, RONIT ([id number]), food expeditor CLARA JOHNSON ([id number]) on 06/06/2019 1:56:02 PM Referred By: Christophe Morrow Confirmed By:RONIT ESTRADA MD
[2019-06-05] MEDS: Aspirin 81 MG TAB.CHEW PO (06:23)
[2019-06-05] MEDS: Lisinopril 5 MG Tablet PO (06:23)
[2019-06-05] MEDS: Metoprolol Tartrate 50 MG Tablet PO ×2 (08:42→18:17)
[2019-06-05] MEDS: hydroCHLOROthiazide 12.5mg 12.5 MG PO (08:42)
[2019-06-05] MEDS: Gabapentin 300 MG Capsule PO ×2 (08:42→13:11)
[2019-06-05] MEDS: Pantoprazole Sodium 40 MG Tablet PO (08:42)
[2019-06-05] MEDS: Magnesium Oxide 400 MG Tablet PO (08:42)
[2019-06-05] MEDS: carBAMazepine 200 MG Tablet PO (11:01)
--- NOTE | 2019-06-05 11:11 | PN.CARD_ITS ---
Subjectve: Patient seen and evaluated. Appears to be doing well. Objective: Vital Signs Temp Pulse Resp BP Pulse Ox 97.5 F L 94 16 138/95 H 97 06/05/19 08:28 06/05/19 08:42 06/05/19 08:28 06/05/19 08:42 06/05/19 08:28 Oxygen Delivery Method Room Air Weight: 170 lb 10.205 oz Body Mass Index (BMI) 30.2 Orthostatic Vital Signs Start: 06/03/19 03:20 Freq: q24h Status: Active Protocol: Activity Type Activity Date Activity User E-Sign Co-Sign Detail Recorded Client Recorded Date Recorded By Document 06/04/19 05:17 EEA [id number] 06/04/19 05:30 EEA 06/04/19 05:17 Orthostatic Vitals Standing -Blood Pressure (90/60-120/80) 116/74 -Extremity Use Right Arm -Pulse Rate (60-100) 83 Sitting -Blood Pressure (90/60-120/80) 106/71 -Extremity Use Right Arm -Pulse Rate (60-100) 75 Lying -Blood Pressure (90/60-120/80) 112/61 -Extremity Use Right Arm -Pulse Rate (60-100) 78 Intake and Output for Last 24 Hours 06/03/19 06/04/19 06/05/19 23:59 23:59 23:59 Intake Total 885 / 885 1010 / 1010 200 / 200 Output Total 1200 / 1200 1050 / 1050 510 / 510 Balance -315 / -315 -40 / -40 -310 / -310 General: Awake, Alert, Oriented x 3 HEENT: PERRL, EOMI, Sclera Non Icteric Neck: Supple, Good ROM, No Lymph Node Enlargement Lungs: Clear to auscultation Cardiovascular: Irregular Rhythm, Normal S1, Normal S2, No Murmurs, No Rubs, No Gallops Vascular: No Carotid Bruits, Normal Femoral Pulses, Normal Radial Pulses, Normal Dorsalis Pedal Pulse, Normal Posterior Tibial Pulses Abdomen: Bowel Sounds Present, Soft, Non Tender, No HSM, No Organomegaly Extremities: No Cyanosis, No Clubbing, No edema Musculoskeletal: No Erythema Skin: No Rashes Lymphatic: No Lymph Node Enlargement Neurological: No Focal Motor or Sensory Deficit Psych/Mental Status: Appropriate Rhythm: EKG: ECHO: Stress Test: Cardiac Cath: PCI: CT Surgery: Holter monitor: EPS: PPM: CXR: Chest CT Scan: Medical Necessity - Tobacco Use Smoking Status: Never smoker Tobacco Use: Non-smoker Assessment/Plan 1. Abnormal cardiac enzymes * Patient underwent pharmacologic stress testing today which demonstrated no obvious evidence of ischemia. Echocardiogram results pending at this time. The above does not appear to be due to significant obstructive coronary disease. 2. Atrial fibrillation flutter * And noted to be in atrial fibrillation flutter with a controlled ventricular response rate. * Would recommend continuation of beta-dayna at this time * Would recommend starting anticoagulation with a factor X inhibitor * It is possible that patient became bradycardia arrhythmic and had a presyncopal spell with nausea and vomiting. I would recommend outpatient 24- hour Holter monitoring. * Can be discharged to be followed up as an outpatient. 3. Hypertension * Control at the present time would not recommend any changes. * * Thank you for allowing me to participate in the care of your patient. Please don't hesitate to call if any issues arise
--- NOTE | 2019-06-05 11:17 | STRESSREP ---
Stress Test Report Pharmacologic myocardial perfusion stress test. 83-year-old lady with a history of presyncope and atrial fibrillation. Resting EKG demonstrates atrial fibrillation with a rate of 118 bpm resting blood pressures 112/70 mmHg. 0.4 mg of regadenoson was infused per usual protocol followed by rapid intravenous saline flush injection continuous EKG monitoring was performed. The maximum heart rate attained was 136 bpm which was 97% of maximum predicted heart rate the maximum workload was 1 metabolic equivalent. Patient maintained atrial fibrillation throughout the recording. There were no ST or T wave changes noted suggest abnormal flow reserve. The resting blood pressures 112/70 mmHg. Myocardial perfusion protocol. 11.9 mCi of technetium 99m sestamibi was injected at rest. 0.4 mg of regadenoson was infused per usual protocol. Peak infusion 33.6 mCi of technetium 99m sestamibi was injected stress images were obtained stress and rest images were reconstructed and compared in the short axis vertical and horizontal long axis. Gated images were also obtained for next Perfusion SPECT analysis: Review of the stress images demonstrate normal uptake of tracer noted in all areas of the myocardium. There is a small area on the stress and resting images in the apex demonstrating mildly reduced perfusion. The above is likely secondary to apical thinning. No obvious reversibility is noted suggest ischemia. Gated SPECT analysis: The gated ejection fraction is noted to be 70%. Conclusion: Normal pharmacologic myocardial perfusion stress test with no evidence of ischemia. Preserved ejection fraction. Atrial fibrillation noted.
--- NOTE | 2019-06-05 11:52 | PCM.DC ---
- Discharge Diagnoses Current Active Problems: Current Active and Chronic Problems History of hypertension (Acute) New onset atrial fibrillation (Acute) Elevated troponin I level (Acute) Pre-syncope (Acute) HTN (hypertension) (Chronic) You will use the following diet at home:: No restrictions Your food should be the consistency of: Regular Your liquids should be the consistency of: Regular/Thin Discharge Activity: Return to Normal Activity Weight Bearing Status: Full weight bearing Allergies/Adverse Reactions: Allergies polyethylene glycol [From Golytely] Allergy (Verified 06/02/19 21:22) Vomiting polyethylene glycol 3350 [From Golytely] Allergy (Verified 06/02/19 21:22) Vomiting potassium chloride [From Golytely] Allergy (Verified 06/02/19 21:22) Vomiting sodium [From Golytely] Allergy (Verified 06/02/19 21:22) Vomiting sodium bicarbonate [From Golytely] Allergy (Verified 06/02/19 21:22) Vomiting sodium chloride [From Golytely] Allergy (Verified 06/02/19 21:22) Vomiting sodium sulfate [From Golytely] Allergy (Verified 06/02/19 21:22) Vomiting Medications to take at Discharge Atorvastatin Calcium 10 mg PO DAILY 06/02/19 Carbamazepine 200 mg PO TID 06/02/19 Gabapentin [Neurontin] 300 mg PO TID 06/02/19 Hydrochlorothiazide 12.5 mg PO DAILY 06/02/19 Lisinopril [Zestril] 10 mg PO DAILY 06/02/19 Magnesium Oxide [Magnesium] 400 mg PO DAILY 06/02/19 Omeprazole 40 mg PO DAILY 06/02/19 Apixaban [Eliquis] 5 mg PO BID #60 tablet 06/05/19 Metoprolol Tartrate [Lopressor (beta dayna)] 50 mg PO BID #60 tab 06/05/19 The following prescriptions were given: Apixaban [Eliquis] 5 mg PO BID #60 tablet Metoprolol Tartrate [Lopressor (beta dayna)] 50 mg PO BID #60 tab Transmission Status: Pending to [facility]/pharmacy #[id number] Primary Care Physician: [facility] Doctor,Out of [NON-STAFF] - Please follow up with your Primary Care Physician in: in 2 weeks Test Results: Test results from this visit will be discussed in further detail at your follow-up appointment, if applicable. Please Follow Up With: Bo Carter MD When: in 3 weeks-call for appointment
[2019-06-05] MEDS: Enoxaparin 80 MG/0.8 ML Syringe SC (18:17)
--- NOTE | 2019-06-07 08:29 | PCM.DC.SUM ---
Discharge Date and Diagnosis Date of Admission: 06/02/19 Date of Discharge: 06/05/19 - Primary Discharge Diagnosis #1 new onset atrial fibrillation #2 presyncope-possibly secondary to atrial fibrillation RVR #3 Intermediate troponin elevation-etiology unknown #4 hypertension #5 trigeminal neuralgia - Secondary Discharge Diagnosis Chronic Problems HTN (hypertension) (Chronic) Hospital Course and Treatment Operations: None Procedures: 2-D Echocardiogram, Nuclear stress test Summary of Care Provided: The patient is a 83 year old F who was seen in the emergency room at [facility] with a chief complaint of a presyncopal episode. Work-up in the emergency room included an EKG which showed the patient to be in atrial fibrillation with a rapid ventricular response of 118, troponin was slightly elevated, labs were remarkable for a white blood cell count of 3.8, hemoglobin of 11.9, and potassium 3.3. Patient was admitted to PCU, was placed on rate limiting medications, she was seen in consultation by cardiology, echocardiogram was obtained which showed a preserved EF but there was also indications that the patient might have a thrombus in the IVC. Patient's d-dimer was slightly elevated, normal CTA was performed but it was a poor study. Patient was maintained on full anticoagulation with Lovenox, she underwent a nuclear stress test on 06/03/2019 which was negative for reversible ischemia. Patient's troponins were intermediate during her hospitalization-the significance of this elevation was unknown. Patient finally underwent aorta iliac vascular ultrasound which showed no evidence of a clot in the IVC. Patient also had a carotid duplex scan done that showed no significant stenosis. On 06/05/2019, patient was seen and examined: On examination she appeared in good health and spirits. Vital signs as documented. Skin warm and dry and without overt rashes. Neck without JVD. Lungs clear. Heart exam notable for irregular rhythm. Abdomen unremarkable and without evidence of organomegaly, masses, or abdominal aortic enlargement. Extremities nonedematous. Neuro: Cranial nerves II through XII are grossly intact, no focal motor deficits were noted, sensation to light touch and pinprick intact. Psych: Patient is alert and oriented x3, she does not appear anxious or depressed On 06/05/2019, patient was seen and examined and felt to be in stable condition for discharge home - Physical Exam Vital Signs Temp Pulse Resp BP Pulse Ox 97.5 F L 76 16 121/86 H 96 06/05/19 15:22 06/05/19 18:17 06/05/19 15:22 06/05/19 15:22 06/05/19 15:22 Oxygen Delivery Method Room Air Weight: 77.4 kg Body Mass Index (BMI) 30.2 Intake and Output for Last 24 Hours 06/05/19 06/06/19 06/07/19 23:59 23:59 23:59 Intake Total 525 / 525 Output Total 810 / 810 Balance -285 / -285 Discharge Activity: Return to Normal Activity Weight Bearing Status: Full weight bearing Home Medications: Medications to take at Discharge Atorvastatin Calcium 10 mg PO DAILY 06/02/19 Carbamazepine 200 mg PO TID 06/02/19 Gabapentin [Neurontin] 300 mg PO TID 06/02/19 Hydrochlorothiazide 12.5 mg PO DAILY 06/02/19 Lisinopril [Zestril] 10 mg PO DAILY 06/02/19 Magnesium Oxide [Magnesium] 400 mg PO DAILY 06/02/19 Omeprazole 40 mg PO DAILY 06/02/19 Apixaban [Eliquis] 5 mg PO BID #60 tab 06/05/19 Metoprolol Tartrate [Lopressor (beta dayna)] 50 mg PO BID #60 tab 06/05/19 Following Prescrptions Were Given to Patient: Apixaban [Eliquis] 5 mg PO BID #60 tab Metoprolol Tartrate [Lopressor (beta dayna)] 50 mg PO BID #60 tab Transmission Status: Received by [facility]/pharmacy #[id number] Primary Care Physician: [facility] Doctor,Out of [NON-STAFF] - Please follow up with your Primary Care Physician in: in 2 weeks Please Follow Up With: Bo Carter MD When: in 3 weeks-call for appointment Disposition: Home Minutes spent on discharge:: 32 Patient Condition:: Stable Medical Necessity - Tobacco Use Smoking Status: Never smoker Tobacco Use: Non-smoker Meaningful Use Info Meaningful Use Diagnoses (Choose all that apply): None applicable Code Visit Inpatient E&M: 66502 Disch Hosp
== END 2019-06-05 18:35 | disposition home or self-care (01) | DRG 310 ==
LOC: ED 21:50 → PCU 23:23
PROVIDERS: Internal Medicine Cardiovascular Disease; Admitting Provider Hospitalist; Emergency Provider Emergency Medicine; Family Provider Internal Medicine; PCP Internal Medicine; Referring Provider Hospitalist; Visit Provider Internal Medicine
DX: I48.91 Unspecified atrial fibrillation (principal); G50.0 Trigeminal neuralgia; I10 Essential (primary) hypertension; E78.5 Hyperlipidemia, unspecified; R55 Syncope and collapse; R79.89 Other specified abnormal findings of blood chemistry; K21.9 Gastro-esophageal reflux disease without esophagitis; R74.8 Abnormal levels of other serum enzymes
CPT/HCPCS: 36415; 74175; 78452; 80048; 80061; 82962; 83735; 84443; 84484; 85027; 85379; 93005; 93017; 93306; 93880; 93978; 97162; 97165; 97530; 99285; A9500; Q9957; Q9967; A4216; J2405; J2785